=== PATIENT | male | born 1995 | race Caucasian/White ===

== ENCOUNTER → 2020-05-31 | Outpatient (CLI) | payer BC, SELFPAY ==
[2020-05-31 20:17] VITALS: BMI 39.5
[2020-05-31 22:02] LABS: Thyroid Stim Hormone (TSH) 1.46 uIU/mL (0.358-3.74)
== END | disposition home or self-care (01) ==
LOC: OLS.AHF 21:23 → LABSPEC 06-01 07:02
PROVIDERS: PCP Nurse Practitioner; Visit Provider Nurse Practitioner
DX: E03.9 Hypothyroidism, unspecified (principal)
CPT/HCPCS: 84443